=== PATIENT | male | born 1975 | race African-American/Black ===

== ENCOUNTER 2017-07-17 21:45 | Emergency (ER) | payer OTHER ==
[~2017-07-17] VITALS: Ht 172.7 cm; Wt 125.7 kg
[~2017-07-17 21:45] MED LIST: ASPIR 8181 MG PO; COREG6.25 MG PO; ELIQUIS5 MG PO; HYDROCODONE-AP1 EAC6 PO; NEPHROCAPS SOFT1 CAP PO; NEXIUM40 MG PO; OMEGA-31000 M1 PO; PROAIR HFA8.5 GM INH; RENVELA800 MG PO; SENSIPAR60 MG PO; TESSALON PERLE100 MG PO; ZOCOR20 MG PO; ZPAK PO
[2017-07-17 21:59] VITALS: BP 100/62
== END 2017-07-18 04:40 | disposition home or self-care (01) ==
LOC: ER 21:45
DX: T82.898A Other specified complication of vascular prosthetic devices, implants and grafts, initial encounter (principal); E11.9 Type 2 diabetes mellitus without complications; I10 Essential (primary) hypertension; E78.00 Pure hypercholesterolemia, unspecified

== ENCOUNTER 2017-12-20 20:03 | Emergency (ER) | payer OTHER ==
[~2017-12-20] VITALS: Ht 172.7 cm; Wt 125.7 kg
--- NOTE | ~2017-12-20 | EKG ---
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
[2017-12-20] MEDS ORDERED: SENSIPAR90 MG PO (20:40)
[2017-12-20] MEDS ORDERED: MIDODRINE HCL 55 M1 PO (20:48)
[2017-12-20] MEDS ORDERED: NEURONTIN 300300 M1 PO (20:48)
[2017-12-20 21:16] LABS: ABSOLUTE NEUTROPHILS 4.6 thou/uL (1.4-8.2); BASOPHILS 1.3 % (0.0-2.0); EOSINOPHILS 4.4 % (0.0-3.0); HEMATOCRIT 31.8 % (42.0-52.0); HEMOGLOBIN 10.4 gm/dL (14.0-18.0); LYMPHOCYTES 22.3 % (24.0-44.0); MCH 28.8 pg (26.0-34.0); MCHC 32.8 g/dL (28.0-37.0); MCV 87.8 fL (80.0-100.0); PLATELET COUNT 321 thou/uL (150-400); RBC 3.62 mil/uL (4.50-6.00); RDW 15.9 % (10.5-14.5); WBC 7.1 thou/uL (4.0-11.0)
[2017-12-20 21:24] LABS: CALCIUM 7.8 mg/dL (8.5-10.1); CREATININE 17.2 mg/dL (0.7-1.3); POTASSIUM 5.8 mmol/L (3.5-5.1)
[2017-12-20 21:30] LABS: ALBUMIN 3.3 g/dL (3.4-5.0); TOTAL BILIRUBIN 0.3 mg/dL (<0.1-1.0); TOTAL PROTEIN 7.9 g/dL (6.4-8.2)
== END 2017-12-20 22:16 | disposition home or self-care (01) ==
LOC: ER 20:03
PROVIDERS: Physician Assistant
DX: T82.868A Thrombosis due to vascular prosthetic devices, implants and grafts, initial encounter (principal); X58.XXXA Exposure to other specified factors, initial encounter; Y92.89 Other specified places as the place of occurrence of the external cause

== ENCOUNTER 2018-01-20 10:20 | Emergency (ER) | payer OTHER ==
[~2018-01-20] VITALS: Ht 172.7 cm; Wt 125.2 kg
[~2018-01-20 10:20] MED LIST changes: +MIDODRINE HCL 55 M1 PO; +NEURONTIN 300300 M1 PO; +SENSIPAR90 MG PO
[2018-01-20] MEDS ORDERED: CIPROFLOXIN HC2.5 M1 OPHTHALMIC (11:40)
[2018-01-20] MEDS ORDERED: TESSALON PERLE100 MG PO (11:40)
[2018-01-20 12:07] VITALS: BP 101/69
== END 2018-01-20 12:09 | disposition home or self-care (01) ==
LOC: ER 10:20
DX: J40 Bronchitis, not specified as acute or chronic (principal); H10.89 Other conjunctivitis; B96.89 Other specified bacterial agents as the cause of diseases classified elsewhere; I10 Essential (primary) hypertension; E11.9 Type 2 diabetes mellitus without complications; E78.00 Pure hypercholesterolemia, unspecified; Z99.2 Dependence on renal dialysis

== ENCOUNTER 2020-06-14 23:08 | Emergency (ER) | payer OTHER ==
[~2020-06-14] VITALS: Ht 172.7 cm; Wt 121.1 kg
[~2020-06-14 23:08] MED LIST changes: +CIPROFLOXIN HC2.5 M1 OPHTHALMIC
[2020-06-14 23:24] VITALS: BP 102/58
[2020-06-14] MEDS ORDERED: NOVOLOG100 UNIT/1 SUBQ (23:32)
[2020-06-14] MEDS ORDERED: LEVEMIR100 UNIT/1 SUBQ (23:32)
[2020-06-14] MEDS ORDERED: GUAIFEN-CODEINE10 ML PO (23:42)
[2020-06-14] MEDS ORDERED: PREDNISONE50 MG PO (23:42)
== END 2020-06-14 23:47 | disposition home or self-care (01) ==
LOC: ER 23:08
DX: J40 Bronchitis, not specified as acute or chronic (principal); E78.00 Pure hypercholesterolemia, unspecified; I10 Essential (primary) hypertension; E11.9 Type 2 diabetes mellitus without complications; Z79.4 Long term (current) use of insulin; Z79.899 Other long term (current) drug therapy; Z99.2 Dependence on renal dialysis; Z79.82 Long term (current) use of aspirin

== ENCOUNTER 2020-09-18 12:32 | Emergency (ER) | payer MEDICARE, OTHER ==
[~2020-09-18] VITALS: Ht 172.7 cm; Wt 120.7 kg
[~2020-09-18 12:32] MED LIST changes: +GUAIFEN-CODEINE10 ML PO; +LEVEMIR100 UNIT/1 SUBQ; +NOVOLOG100 UNIT/1 SUBQ; +PREDNISONE50 MG PO
[2020-09-18 12:38] VITALS: BP 89/54
[2020-09-18] MEDS ORDERED: TRULICITY4.5 MG/0.5 SUBQ (12:43)
[2020-09-18] MEDS ORDERED: OXYCODONE-APAP1 EAC4 PO (12:43)
[2020-09-18] MEDS ORDERED: CEPHALEXIN 250250 M1 PO (12:44)
[2020-09-18] MEDS ORDERED: CEPHALEXIN500 MG PO (13:14)
[2020-09-18] MEDS ORDERED: APAP W/CODEINE1 TA2 PO (13:16)
== END 2020-09-18 13:23 | disposition home or self-care (01) ==
LOC: ER 12:32
DX: L02.31 Cutaneous abscess of buttock (principal); E11.9 Type 2 diabetes mellitus without complications; I10 Essential (primary) hypertension; E78.00 Pure hypercholesterolemia, unspecified; N19 Unspecified kidney failure; Z99.2 Dependence on renal dialysis

== ENCOUNTER 2021-01-12 10:27 | Inpatient (IN) | payer MEDICARE, OTHER ==
[~2021-01-12] VITALS: Ht 172.7 cm; Wt 135.5 kg
[~2021-01-12 10:27] MED LIST changes: +APAP W/CODEINE1 TA2 PO; +CEPHALEXIN 250250 M1 PO; +CEPHALEXIN500 MG PO; +OXYCODONE-APAP1 EAC4 PO; +TRULICITY4.5 MG/0.5 SUBQ
[2021-01-12 10:32] VITALS: BP 128/78
[2021-01-12 11:12] LABS: ABSOLUTE NEUTROPHILS 4.2 thou/uL (1.4-8.2); BASOPHILS 0.8 % (0.0-2.0); EOSINOPHILS 3.4 % (0.0-3.0); HEMATOCRIT 34.1 % (42.0-52.0); HEMOGLOBIN 11.1 gm/dL (14.0-18.0); LYMPHOCYTES 15.3 % (24.0-44.0); MCH 30.7 pg (26.0-34.0); MCHC 32.5 g/dL (28.0-37.0); MCV 94.4 fL (80.0-100.0); PLATELET COUNT 227 thou/uL (150-400); POLYS 72.5 % (36.0-66.0); RBC 3.61 mil/uL (4.50-6.00); RDW 16.9 % (10.5-14.5); WBC 5.9 thou/uL (4.0-11.0)
--- NOTE | 2021-01-12 12:06 | 2DMMODE ---
[facility] [place] [address] 2 D/M-MODE ECHOCARDIOGRAM Name: CONSTANZA DEGROOT Room #: [facility]#: [id number] Admission: 01/12/21 Attend Phys: Discharge: Date of : 73 Report #: [id number] THIS REPORT FOR: cc: Bashir Burns MD, David A. MD Lundgren,Hugo Ruiz MD [facility] ~ APPROVED REPORT Study performed: 01/12/2021 12:31:46 EXAM: Comprehensive 2D, Doppler, and color-flow Echocardiogram Patient Location: ER Status: routine BSA: 2.35 HR: 98 bpm BP: 132/88 mmHg Rhythm: Tachycardia Other Information Study Quality: Fair Technically limited study due to morbid obesity, inability to position. Indications Chest Pain Hx: CAD, PCI, ESRD, CVA, DM. Echo Enhancing Agent Indication: Endocardial border delineation Agent(s) / Amount(s) Used: Optison 4 cc 2D Dimensions IVSd: 10.65 (7-11mm) LVOT Diam: 21.09 (18-24mm) LVDd: 47.22 mm PWd: 9.87 (7-11mm) LVDs: 38.58 (25-40mm) Aortic Root: 34.01 mm Volumes Left Atrial Volume (Systole) Single Plane 4CH: 73.77 mL Single Plane 2CH: 47.88 mL LA ESV Index: 27.00 mL/m2 [facility] [address] [place] [address] 2 D/M-MODE ECHOCARDIOGRAM Name: CONSTANZA DEGROOT Room #: [facility]#: [id number] Admission: 01/12/21 Attend Phys: Discharge: Date of : 73 Report #: [id number] Aortic Valve AoV Peak Prudencio.: 1.00 m/s AO Peak Gr.: 3.99 mmHg LVOT Max P.44 mmHg LVOT Max V: 0.78 m/s ARLENE Vmax: 2.73 cm2 Pulmonary Valve PV Peak Prudencio.: 0.96 m/s PV Peak Gr.: 3.66 mmHg Tricuspid Valve TR Peak Prudencio.: 2.33 m/s RAP Estimate: 5.00 mmHg TR Peak Gr.: 22.00 mmHg PA Pressure: 27.00 mmHg Left Ventricle The left ventricle is normal size. There is normal left ventricular wall thickness. Left ventricular systolic function is moderately decreased. LVEF is 35-40%. Distal septal and apical hypokinesis suggested This study is not technically sufficient to allow evaluation of the LV diastolic function. Right Ventricle The right ventricle is normal size. The right ventricular systolic function is normal. Atria The left atrium size is normal. The right atrium size is normal. Aortic Valve The aortic valve is not well visualized. No aortic regurgitation is present. There is no aortic valvular stenosis. Mitral Valve The mitral valve is normal in structure. Mild mitral regurgitation. No evidence of mitral valve stenosis. Tricuspid Valve The tricuspid valve is normal in structure. Trace tricuspid regurgitation. Estimated pulmonary artery pressure of 25mmHg. Pulmonic Valve The pulmonary valve is normal in structure. There is no pulmonic valvular regurgitation. [facility] [address] [place] [address] 2 D/M-MODE ECHOCARDIOGRAM Name: CONSTANZA DEGROOT Room #: [facility]#: [id number] Admission: 01/12/21 Attend Phys: Discharge: Date of : 73 Report #: [id number] Great Vessels The aortic root is normal in size. Ascending aorta is not well visualized. IVC is normal in size and collapses <50% with inspiration. Pericardium There is no pericardial effusion. <Conclusion> Technically very difficult study Left ventricular systolic function is moderately decreased. LVEF is 35-40%. Distal septal and apical hypokinesis suggested The aortic valve is not well visualized. No aortic regurgitation or stenosis. The mitral valve is normal in structure. Mild mitral regurgitation. Trace tricuspid regurgitation. Estimated pulmonary artery pressure of 25mmHg. There is no pericardial effusion. <ELECTRONICALLY SIGNED> By: Hugo Gil MD, [facility] 01/12/21 1205 1205 1205 Hugo Gil MD, FACC /INF
--- NOTE | 2021-01-12 12:06 | EKG ---
[place] [address] [facility] - [facility] 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 : 1975 Requested By: Alfredo Campos Order Number: [id number] MD: Pedro Leahy Measurements Intervals [place] Rate: 101 P: [place]: QRS: -17 QRSD: 70 T: -2 QT: 337 QTc: 437 Interpretive Statements Junctional tachycardia Anterior infarct, old Compared to ECG 12/20/2017 21:34:06 Junctional tachycardia now present Sinus rhythm no longer present Myocardial infarct finding still present Electronically Signed On 01-12-2021 12:05:51 EMPLOYEE REPRESENTATIVE by Pedro Leahy [email or web address] <ELECTRONICALLY SIGNED> By: Pedro Leahy MD, [facility] 01/12/21 1205 1101 1101 Pedro Leahy MD, FACC /EPI
[2021-01-12 12:10] LABS: ALBUMIN 3.3 g/dL (3.4-5.0); CALCIUM 8.5 mg/dL (8.5-10.1); CREATININE 15.2 mg/dL (0.7-1.3); MAGNESIUM 2.2 mg/dL (1.8-2.4); TOTAL BILIRUBIN 0.4 mg/dL (0.2-1.0)
[2021-01-12 12:17] LABS: POTASSIUM 6.3 mmol/L (3.5-5.1)
[2021-01-12 12:58] VITALS: BP 133/85
[2021-01-12 14:18] LABS: FOLIC ACID 12.8 ng/mL (8.6-58.9)
--- NOTE | 2021-01-12 14:20 | EKG ---
[place] [address] [facility] [place] [address] ELECTROCARDIOGRAM REPORT Name: CONSTANZA DEGROOT [facility] [id number] Admission: 01/12/21 Attend Phys: Discharge: Date of : 73 Report #: [id number] [facility] ED Test Date: 2021-01-12 Test Time: 12:49:35 Pat Name: CONSTANZA DEGROOT Department: Room: Gender: M Reimbursement Liaison: MARLENI : 1975 Requested By: Alfredo Campos Order Number: [id number] MD: Pedro Leahy Measurements Intervals [place] Rate: 94 P: 40 [place]: 192 QRS: -29 QRSD: 77 T: 38 QT: 359 QTc: 449 Interpretive Statements Sinus rhythm Anterior infarct, old Compared to ECG 01/12/2021 11:01:26 Junctional tachycardia no longer present Myocardial infarct finding still present Electronically Signed On 01-12-2021 14:20:35 FREEZER TUNNEL OPERATOR by Pedro Leahy [email or web address] <ELECTRONICALLY SIGNED> By: Pedro Leahy MD, [facility] 01/12/21 1420 1249 1249 Pedro Leahy MD, FACC /EPI
[2021-01-12 15:35] VITALS: BP 136/96
--- NOTE | 2021-01-12 17:18 | CATHLAB ---
[facility] [address] [place] [address] INVASIVE PROCEDURE REPORT Name: CONSTANZA DEGROOT Room #: 210-P ADM IN M.R.#: [id number] Admission: 01/12/21 Attend Phys: Lizz Schmid Discharge: Date of : 73 Report #: [id number] THIS REPORT FOR: cc: Bashir Burns MD, David A. MD Park, Jin S. MD ~ APPROVED REPORT Study performed: 01/12/2021 12:44:37 Patient Details Patient Status: ED Room #: The patient is a 45 year-old male Event Personnel Amol Merrill Chucking And Sawing Machine Operator, Courtney Chandler RTR, BACK GRINDER Monitor, Amy Becerril Jones, Jessica RN water resources technical officer Performed Art Access - R femoral artery* Left Heart Cath w/or w/o Coronaries [id number] [facility] w/wo Plasty Single LAD 834993 Hemostasis w/ Mynx 23841 Initial Mod Sed Same Phys/QHP Gr5y 388188 80252 Mod Sed Same Phys/QHP Ea 263290 Indication Non-STEMI (>24 hrs to = 48 hrs), Dyspnea, Chest pain Risk Factors Cerebrovascular DiseasePeripheral Vascular Disease, Hypercholesterolemia, Coronary Artery DiseaseRenal Failure, Diabetes , Dialysis Previous Procedures/Diagnoses Previous CVAPrevious PCI, Previous [place] Procedure Narrative The Right Groin^ was infiltrated with 1% Lidocaine subcutaneous anesthesia. A PINNACLE 4FR Sheath #[id number] sheath was inserted into the RFA^. Coronary angiography was performed using coronary diagnostic catheters. The right coronary system was accessed and visualized with a JR4 catheter. The left coronary system was accessed and visualized with a JL4 catheter. The left ventricle was accessed and visualized with a ANGLED PIGTAIL catheter. Left ventricular/Aortic Valve gradient assessed via catheter pullback. [facility] [place] [address] INVASIVE PROCEDURE REPORT Name: CONSTANZA DEGROOT Carolyn Room #: [facility].#: [id number] Admission: 01/12/21 Attend Phys: Lizz Chacon Discharge: Date of : 73 Report #: [id number] Left ventriculogram was performed in 30 degree projection. Pre-demployment femoral angiogram was performed . Closure device was deployed with a 6 Fr MYNXGRIP 6/7F #[id number]. The patient tolerated the procedure well and there were no complications associated with the procedure. There was no hematoma. Intraoperative Conscious Sedation Sedation start time: 13:21 Case end Time: 14:27 Fentanyl 25 mcg Versed 1 mg Fluoro Time: 13.45 minutes Dose: DAP 55945.00 cGycm2 3433 mGy Contrast Type and Amount: Omnipaque 230 ml Coronary Angiography The patient's coronary anatomy is co- dominant. Diagnostic Cath Left Main Left main artery has mild plaquing in the distal segment. LAD The LAD is a moderate-sized caliber vessel with calcifications throughout. There is a severe stenosis in the midsegment, 80%. Just beyond the lesion there is a stent with moderately severe restenosis. Diagonal 1 There is a total occlusion of the first diagonal artery, with previous stent placement in the proximal segment. Circumflex The left circumflex artery appears to be a codominant vessel. There is an outline of a possible stent in the midsegment versus significant calcifications. This area is patent with no flow-limiting lesions. OM1 This is a small caliber vessel with severe diffuse disease. OM2 This is a small to moderate-sized caliber vessel, with moderate diffuse disease in the proximal segment. There is severe diffuse disease in the distal segment. Right Coronary The RCA is totally occluded in the midsegment. The distal branches are partially filled via collateral circulation from the left coronary artery. Left Ventriculography The left ventricle is mildly dilated in size with Diminished contractility. The left ventricular ejection fraction is estimated to be 30-35%. Left ventricular wall motion abnormalities are present. [facility] [address] [place] [address] INVASIVE PROCEDURE REPORT Name: CONSTANZA DEGROOT Room #: 210-P [facility] IN M.R.#: [id number] Admission: 01/12/21 Attend Phys: Lizz Chacon Discharge: Date of : 73 Report #: [id number] Hemodynamics The aortic pressure is 107/75 mmHg with a mean of 89 mmHg. The left ventricular pressure is 108/12 mmHg with a mean of mmHg. The left ventricular end diastolic pressure is 27 mmHg. PCI Technique Lesion Percutaneous coronary intervention was performed on the mid left anterior descending artery segment. The lesion stenosis prior to intervention was 80% with DARREN 3 flow. A VISTA 6FR XB 3.5 #[id number] Guide Catheter was used to engage the ostium. A Luge Wire .014 x 182CM #[id number] Interventional Guidewire was used to cross the lesion. BALLOON DILATION A Balloon catheter Euphora RX 2.25 x 15 #[id number] was inserted and inflated up to 12.00atm for 10seconds. Additional Inflation: 8.00atm for 7seconds. Additional Inflation: 8.00atm for 14seconds. Additional Inflation: 16 la for 19 seconds Additional Inflation: 18 la for 14 seconds STENT DEPLOYMENT A drug-eluting stent RESOLUTE JAJA RX 2.75 X 18 #[id number] was inserted and inflated up to 16.00atm for 33seconds. POST STENT DEPLOYMENT BALLOON DILATION A Balloon catheter Euphora NC RX 3.0 x 15 #[id number] was inserted and inflated up to 18.00atm for 34seconds. Additional Inflation: 18.00atm for 24seconds. Conclusion 1. PCI performed with placement of a drug-eluting stent into the mid LAD segment. Just beyond the lesion there is a severe restenotic lesion, PCI performed with balloon angioplasty with noncompliant balloons. 2. Total occluded first diagonal artery. 3. There is a total occlusion of the RCA. The distal branches are partially filled via collateral circulation from the left coronary artery. 4. The first obtuse marginal artery has severe diffuse disease. 5. There is moderately severe LV dysfunction. 6. Recommend aggressive risk factor management and antiplatelet therapy. <ELECTRONICALLY SIGNED> By: Amol Merrill MD 01/12/211716 16 16 Amol Merrill MD /INF
--- NOTE | 2021-01-12 18:24 | NUR ---
PT TO THE UNIT POST CARDIAC CATH - ORIENTED TO ROOM AND BEDSPACE. VSS, GROIN SITE C/D/I. ASSESSMENT CHARTED - MEDS PER APR -- PT WITH APPROX 150CC OF EMISIS THIS EVEING. PT STATED HE FELT MUCH BETTER AFTERWORDS AND WANTED TO CONTINIUE EATING. ACCUCHECK CHARTED - PT TO HAVE DILAYSIS IN THE AM. DILAYSIS CATH PRESENT TO LEFT UPPER CHEST. BEDREST OVER - PATIENT SAT UP IN BED TO EAT, NO CO'S AT THE PRESENT TIME.
[2021-01-12 19:24] VITALS: BP 142/90
[2021-01-13 03:31] VITALS: BP 137/82
[2021-01-13 05:07] LABS: GLYCOHEMOGLOBIN (HGB A1C) 7.8 % (4.8-5.6)
[2021-01-13 06:10] LABS: HEMATOCRIT 34.1 % (42.0-52.0); HEMOGLOBIN 11.1 gm/dL (14.0-18.0); MCH 30.7 pg (26.0-34.0); MCHC 32.5 g/dL (28.0-37.0); MCV 94.5 fL (80.0-100.0); RBC 3.61 mil/uL (4.50-6.00); WBC 5.8 thou/uL (4.0-11.0)
[2021-01-13 06:17] LABS: ALBUMIN 3.5 g/dL (3.4-5.0); CALCIUM 8.9 mg/dL (8.5-10.1); PHOSPHORUS 7.6 mg/dL (2.6-4.7)
[2021-01-13 06:20] LABS: CREATININE 16.7 mg/dL (0.7-1.3)
[2021-01-13 06:21] LABS: POTASSIUM 6.8 mmol/L (3.5-5.1)
--- NOTE | 2021-01-13 06:30 | NUR ---
THIS RN REPORTED CRITICAL LAB VALUES TO RN IN CHARGE OF PT CARE, CARLOS AT 0622.
[2021-01-13 06:35] LABS: CHOLESTEROL 167 mg/dL (<200); HDL CHOLESTEROL 40 mg/dL (>40); LDL CHOLESTEROL 104 mg/dL (<100); TC:HDL 4.2 Ratio (Not establshd); TRIGLYCERIDE 119 mg/dL (<150); VLDL 24 mg/dL (<40)
[2021-01-13 06:36] LABS: SERUM ASSESSMENT Clear
[2021-01-13 07:06] VITALS: BP 132/87
--- NOTE | 2021-01-13 07:48 | EKG ---
[address] [place] [address] ELECTROCARDIOGRAM REPORT Name: CONSTANZA DEGROOT Room #: 210-P ADM IN M.R.#: [id number] Admission: 01/12/21 Attend Phys: Lizz Schmid Discharge: Date of : 73 Report #: [id number] [facility] ED Test Date: 2021-01-12 Test Time: 10:39:10 Pat Name: CONSTANZA DEGROOT Department: Room: 210 Gender: M Manager International: JIM : 1975 Requested By: Amol Merrill Order Number: [id number] MD: Pedro Leahy Measurements Intervals [place] Rate: 102 P: 35 [place]: 171 QRS: -24 QRSD: 70 T: -5 QT: 291 QTc: 379 Interpretive Statements Sinus tachycardia Inferior infarct, old Anterior infarct, old Lateral leads are also involved Baseline wander in lead(s) I,II,aVR,V4 Compared to ECG 12/20/2017 21:34:06 Sinus rhythm no longer present Myocardial infarct finding still present Electronically Signed On 01-13-2021 7:48:07 TREASURY ASSISTANT by Pedro Leahy [email or web address] <ELECTRONICALLY SIGNED> By: Pedro Leahy MD, FACC 01/13/21 0748 1039 1039 Pedro Leahy MD, FAC /EPI
--- NOTE | 2021-01-13 07:50 | EKG ---
[place] [address] [facility] [place] [address] ELECTROCARDIOGRAM REPORT Name: CONSTANZA DEGROOT Room #: 210-P ADM IN M.R.#: [id number] Admission: 01/12/21 Attend Phys: Lizz Schmid Discharge: Date of : 73 Report #: [id number] [facility] Test Date: 2021-01-13 Test Time: 06:42:41 Pat Name: CONSTANZA DEGROOT Department: Room: 210 P Gender: M Director Of Capital Giving: PORFIRIO : 1975 Requested By: Amol Merrill Order Number: [id number] MD: Pedro Leahy Measurements Intervals [place] Rate: 98 P: 39 [place]: 183 QRS: -3 QRSD: 71 T: 14 QT: 338 QTc: 432 Interpretive Statements Sinus rhythm Anterior infarct, old Compared to ECG 01/12/2021 12:49:35 No significant changes Electronically Signed On 01-13-2021 7:50:28 TELEGRAPHIC SERVICE DISPATCHER by Pedro Leahy [email or web address] <ELECTRONICALLY SIGNED> By: Pedro Leahy MD, [facility] 01/13/21 0750 0642 0642 Pedro Leahy MD, FACC /EPI
[2021-01-13] MEDS ORDERED: CLOPIDOGREL75 MG PO (08:38)
[2021-01-13] MEDS ORDERED: LIPITOR40 MG PO (08:38)
[2021-01-13 10:24] VITALS: BP 132/87
--- NOTE | 2021-01-13 12:58 | NUR ---
assessment as charted - meds as per rain - fan diet and fluids. no co's of pain or nausea. pt had dialysis this am. home after dialysis - instsruction re home meds/ care and follow up given to patient stated understanding of instruction given- groin diet c/d/i. no co's at time of d/c. left unit via wheelchair drove self home.
== END 2021-01-13 11:51 | disposition home or self-care (01) | DRG 246 ==
LOC: ER 10:27 → 2N 15:44 → TBA 15:44 → 2N 15:47
PROVIDERS: Emergency Medicine; Nurse Practitioner; ADMIT Hospitalist; ATTEND Hospitalist
PROC: B41F1ZZ Fluoroscopy of Right Lower Extremity Arteries using Low Osmolar Contrast (ICD-10-PCS; principal; 2021-01-12)
PROC: 5A1D70Z Performance of Urinary Filtration, Intermittent, Less than 6 Hours Per Day (ICD-10-PCS; principal; 2021-01-12)
PROC: 027034Z Dilation of Coronary Artery, One Artery with Drug-eluting Intraluminal Device, Percutaneous Approach (ICD-10-PCS; principal; 2021-01-12)
PROC: B2111ZZ Fluoroscopy of Multiple Coronary Arteries using Low Osmolar Contrast (ICD-10-PCS; principal; 2021-01-12)
PROC: 4A023N7 Measurement of Cardiac Sampling and Pressure, Left Heart, Percutaneous Approach (ICD-10-PCS; principal; 2021-01-12)
PROC: B2151ZZ Fluoroscopy of Left Heart using Low Osmolar Contrast (ICD-10-PCS; principal; 2021-01-12)
DX: I21.4 Non-ST elevation (NSTEMI) myocardial infarction (principal); N18.6 End stage renal disease; I13.2 Hypertensive heart and chronic kidney disease with heart failure and with stage 5 chronic kidney disease, or end stage renal disease; I69.351 Hemiplegia and hemiparesis following cerebral infarction affecting right dominant side; Z68.42 Body mass index [BMI] 45.0-49.9, adult; E78.00 Pure hypercholesterolemia, unspecified; E11.22 Type 2 diabetes mellitus with diabetic chronic kidney disease; Z20.822 Contact with and (suspected) exposure to COVID-19; I25.10 Atherosclerotic heart disease of native coronary artery without angina pectoris; E78.5 Hyperlipidemia, unspecified; E87.5 Hyperkalemia; I50.9 Heart failure, unspecified; I95.1 Orthostatic hypotension; E66.9 Obesity, unspecified; I25.5 Ischemic cardiomyopathy; G47.33 Obstructive sleep apnea (adult) (pediatric); Z79.82 Long term (current) use of aspirin; Z95.5 Presence of coronary angioplasty implant and graft; Z79.899 Other long term (current) drug therapy
CPT/HCPCS: 10081; 32100

== ENCOUNTER → 2021-02-25 | Emergency (ER) | payer OTHER ==
[~2021-02-25] VITALS: Ht 172.7 cm; Wt 125.7 kg
[~2021-02-25] MED LIST changes: +CLOPIDOGREL75 MG PO; +LIPITOR40 MG PO
[2021-02-25 16:22] VITALS: BP 100/55
== END ==
LOC: ER 15:58
DX: Z53.21 Procedure and treatment not carried out due to patient leaving prior to being seen by health care provider (principal)